=== PATIENT | female | born 1945 | race Caucasian/White ===

== ENCOUNTER 2020-03-30 21:00 | Emergency (ER) | payer MEDICARE, OTHER ==
[~2020-03-30] VITALS: Ht 165.1 cm; Wt 49.9 kg
--- NOTE | 2020-03-30 21:47 | NUR ---
JACKELINE FROM [facility] TO ER BED 5. AAOX4. NOT IN RESP DISTRESS, BREATING EVEN AND UNLABORED. BROUGHT IN FOR NASAL CONGESTION AND COUGH X 1 DAYS. PER PT, HER ALLERGIES ARE ACTING UP. PT IS AFEBRILE. WAS AT THE BEDSIDE FOR EVAL. ORDERS RECEIVED, NOTED AND CARRIED OUT. COVID SWABS DONE AND SENT TO LAB
--- NOTE | 2020-03-30 22:21 | NUR ---
REC'D POSITIVE COVID RESULT
--- NOTE | 2020-03-31 00:28 | NUR ---
TOOK OVER PT CARE. PT IN BED RESTING COMFORTABLY. VSS.
--- NOTE | 2020-03-31 02:10 | NUR ---
PT APPEARS ANXIOUS AND TEARFUL. MD AWARE, PER VERBAL MD ORDER WILL ADMINISTER ATIVAN 1MG PO X1 NOW
[2020-03-31] MEDS ORDERED: LORAZEPAM 1 MG TABLET ONE (02:14)
[2020-03-31] MEDS ORDERED: LORAZEPAM 1 MG TABLET PO ONE (02:30)
--- NOTE | 2020-03-31 06:47 | NUR ---
ordered breakfast tray; regular diet
--- NOTE | 2020-03-31 07:36 | NUR ---
PATIENT IN BED ASLEEP, EASILY AROUSABLE BY VOICE. PATIENT ON MASK AND ISOLATION PRECAUTIONS MAINTAINED. HOOKED TO MONITOR. VSS. WILL CONTINUE TO MONITOR ACCORDINGLY
--- NOTE | 2020-03-31 09:33 | NUR ---
PATIENT IN BED AWAKE. PATIENT ON MASK AND ISOLATION PRECAUTIONS MAINTAINED. HOOKED TO MONITOR. VSS. WILL CONTINUE TO MONITOR ACCORDINGLY
--- NOTE | 2020-03-31 12:30 | NUR ---
PT PROVIDED WITH MEAL. NAD NOTED. SHE AAOX3.
--- NOTE | 2020-03-31 12:44 | NUR ---
patient accepted at [facility], give report at 3pm at [phone]. 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
[2020-03-31] MEDS ORDERED: PETR113O TP (14:05)
[2020-03-31] MEDS ORDERED: METH4TAB17 PO (14:05)
[2020-03-31] MEDS ORDERED: MELA3TAB41 PO (14:05)
[2020-03-31] MEDS ORDERED: LORA10TA7 PO (14:05)
[2020-03-31] MEDS ORDERED: TRIA80OI TP (14:05)
[2020-03-31] MEDS ORDERED: ACET-2605 PO (14:05)
[2020-03-31] MEDS ORDERED: METO25TA20 PO (14:05)
[2020-03-31] MEDS ORDERED: LOSA50TA39 PO (14:05)
[2020-03-31] MEDS ORDERED: HYDR-500 PO (14:05)
[2020-03-31] MEDS ORDERED: HYDR25TA4 PO (14:05)
[2020-03-31] MEDS ORDERED: SERT50TA PO (14:05)
[2020-03-31] MEDS ORDERED: ATOR10TA PO (14:05)
[2020-03-31] MEDS ORDERED: DONE10TA44 PO (14:05)
[2020-03-31] MEDS ORDERED: ALPR0.255 PO (14:05)
--- NOTE | 2020-03-31 15:58 | NUR ---
report given to OCTAVIO Minor at the [facility] for yumiko.
--- NOTE | 2020-03-31 16:09 | NUR ---
[facility] @ bedside for pt transport to [facility]. Report given. Pt is in stable condition for transport. NAD noted.
[2020-03-31 16:28] VITALS: BP 150/79
== END 2020-03-31 16:29 ==
LOC: ER 21:05 → EDBD 21:05 → ER 03-31 16:29
DX: U07.1 COVID-19 (principal); I10 Essential (primary) hypertension; G31.84 Mild cognitive impairment of uncertain or unknown etiology; Z88.0 Allergy status to penicillin; E78.5 Hyperlipidemia, unspecified; L40.9 Psoriasis, unspecified; G47.00 Insomnia, unspecified
CPT/HCPCS: 71045-TC; C9803; U0003